=== PATIENT | male | born 1950 | race Caucasian/White ===

== ENCOUNTER 2023-10-05 10:13 | Outpatient (CLI) | payer OTHER | END 2023-10-05 10:14 | disposition home or self-care (01) | LOC: CSHCT 10:13 | PROVIDERS: ATTEND Internal Medicine | DX: J30.9 Allergic rhinitis, unspecified (principal); J34.1 Cyst and mucocele of nose and nasal sinus; Z98.890 Other specified postprocedural states; J34.2 Deviated nasal septum ==